=== PATIENT | male | born 1960 | race Caucasian/White ===

== ENCOUNTER 2023-07-26 20:10 | Inpatient (IN) | payer OTHER ==
[2023-07-26 21:08] LABS: #Basophils 0.03 10x3/uL (0.0-0.2); %Basophils 0.4 % (0.0-1.0); %Eosinophils 1.7 % (0.0-10.0); %Lymphocytes 30.2 % (21.0-51.0); %Monocytes 8.2 % (0.0-10.0); Hematocrit 43.7 % (42.0-52.0); Hemoglobin 16.1 g/dL (14.0-18.0); Mean Corpuscular HGB CONC 36.8 g/dL (32.0-36.0); Mean Corpuscular Hemoglobin 32.7 pg (27.0-31.0); Mean Corpuscular Volume 88.8 fL (78.0-98.0); Platelet Count 171 10x3/uL (130-400); RBC Distribution Width 13.4 % (11.5-14.5); Red Blood Cell (RBC) Count 4.92 mill/uL (4.70-6.10)
[2023-07-26 21:21] LABS: ALT (SGPT) 31 U/L (8-55); AST (SGOT) 24 U/L (5-34); Albumin 3.9 g/dL (3.4-4.8); Alkaline Phosphatase 90 U/L (40-110); Anion Gap 18 mmol/L (10-20); BUN (Urea Nitrogen) 14 mg/dL (8.4-25.7); Bilirubin, Total 0.5 mg/dL (0.2-1.2); Calc. Creatinine Clearance 0 mL/min (70-130); Calcium 9.3 mg/dL (7.8-10.44); Carbon Dioxide 21 mmol/L (23-31); Chloride 99 mmol/L (98-107); Estimated GFR 70; Globulin 3.9 g/dL (2.4-3.5); Glucose 157 mg/dL (80-115); Potassium 3.3 mmol/L (3.5-5.1); Protein, Total 7.8 g/dL (5.8-8.1); Sodium 135 mmol/L (136-145)
[2023-07-26 21:26] LABS: Troponin I 0.079 ng/mL (< 0.028)
[2023-07-26] MEDS ORDERED: Aspirin Chewable 81 MG TAB ONE (21:32)
[2023-07-26] MEDS ORDERED: Acetaminophen 500 MG TAB ONE (21:32)
[2023-07-26] MEDS ORDERED: Pantoprazole 40 MG VIAL ONE (21:33)
[2023-07-26] MEDS ORDERED: Senokot S 8.6-50 MG TAB PO PRN (22:11)
[2023-07-26] MEDS ORDERED: Acetaminophen 650 MG Suppository PR PRN (22:11)
[2023-07-26] MEDS ORDERED: Acetaminophen 325 MG TAB PO PRN (22:11)
[2023-07-26] MEDS ORDERED: Nitroglycerin 0.4 MG TAB (25 Tab Bottle) SL PRN (22:12)
[2023-07-26] MEDS ORDERED: Morphine 2 MG/ML VIAL SLOW IVP PRN (23:43)
[2023-07-27 00:06] LABS: Magnesium 1.9 mg/dL (1.6-2.6)
[2023-07-27 00:19] LABS: Critical Call Chem Troponin I NUR.MVB@0019; Troponin I 0.708 ng/mL (< 0.028)
[2023-07-27] MEDS ORDERED: Enoxaparin 80 MG (0.8 mL) SYRINGE SC SCH (00:30)
[2023-07-27 01:01] VITALS: BMI 36.1
[2023-07-27] MEDS ORDERED: Morphine 2 MG/ML VIAL ONE (01:22)
[2023-07-27] MEDS ORDERED: Nitroglycerin 2% Ointment 1 INCH/1 GM Packet ONE ×4 (01:23→09:30)
[2023-07-27] MEDS ORDERED: Potassium Chloride 20 MEQ TAB ONE ×2 (01:25→01:26)
[2023-07-27] MEDS: Enoxaparin 120 MG/0.8 ML SYRINGE SC SCH (01:30)
[2023-07-27] MEDS: Morphine 2 MG/ML VIAL SLOW IVP SCH (01:31)
[2023-07-27] MEDS: Nitroglycerin 2% Ointment 1 INCH/1 GM Packet TOP SCH (01:32)
[2023-07-27] MEDS: Lidocaine 2% Viscous 10 mL, Alum & Magn 30 mL SSW SCH (01:33)
[2023-07-27] MEDS ORDERED: Enoxaparin 30 MG (0.3 mL) SYRINGE ONE ×2 (01:38→09:17)
[2023-07-27] MEDS ORDERED: Enoxaparin 100 MG (1 mL) SYRINGE ONE ×2 (01:38→09:18)
[2023-07-27] MEDS: Enoxaparin 100 MG (1 mL) SYRINGE SC SCH ×2 (01:41→09:21)
[2023-07-27] MEDS: Communication Order-Pharmacy FS SCH (01:42)
[2023-07-27] MEDS: Enoxaparin 30 MG (0.3 mL) SYRINGE SC SCH ×2 (01:42→09:20)
[2023-07-27 03:45] LABS: #Basophils 0.04 10x3/uL (0.0-0.2); %Basophils 0.4 % (0.0-1.0); %Eosinophils 1.2 % (0.0-10.0); %Lymphocytes 20.1 % (21.0-51.0); %Monocytes 6.7 % (0.0-10.0); %Neutrophils 71.2 % (42.0-75.0); Hematocrit 42.1 % (42.0-52.0); Hemoglobin 15.3 g/dL (14.0-18.0); Mean Corpuscular HGB CONC 36.3 g/dL (32.0-36.0); Mean Corpuscular Hemoglobin 32.6 pg (27.0-31.0); Mean Corpuscular Volume 89.6 fL (78.0-98.0); Mean Platelet Volume 9.5 fL (7.4-10.4); Platelet Count 172 10x3/uL (130-400); RBC Distribution Width 13.4 % (11.5-14.5)
[2023-07-27 04:10] LABS: Anion Gap 14 mmol/L (10-20); BUN (Urea Nitrogen) 15 mg/dL (8.4-25.7); Calc. Creatinine Clearance 132 mL/min (70-130); Calcium 9.1 mg/dL (7.8-10.44); Carbon Dioxide 25 mmol/L (23-31); Chloride 101 mmol/L (98-107); Estimated GFR 82; Glucose 137 mg/dL (80-115); Potassium 3.5 mmol/L (3.5-5.1); Sodium 136 mmol/L (136-145)
[2023-07-27 04:27] LABS: Troponin I 17.858 ng/mL (< 0.028)
[2023-07-27] MEDS ORDERED: Enoxaparin 40 MG (0.4 mL) SYRINGE SC SCH (09:00)
[2023-07-27] MEDS ORDERED: Aspirin Chewable 81 MG TAB ONE (09:17)
[2023-07-27] MEDS ORDERED: Famotidine 20 MG TAB ONE (09:17)
[2023-07-27] MEDS: Famotidine 20 MG TAB PO SCH (09:20)
[2023-07-27] MEDS: Aspirin Chewable 81 MG TAB PO SCH (09:20)
[2023-07-27] MEDS ORDERED: Communication Order-Pharmacy FS SCH (12:00)
[2023-07-27 12:13] LABS: Troponin I 61.171 ng/mL (< 0.028)
[2023-07-27] MEDS ORDERED: Amlodipine 5 MG TAB ONE (12:17)
[2023-07-27] MEDS: Amlodipine 5 MG TAB PO SCH (12:18)
[2023-07-27] MEDS: Enoxaparin 40 MG (0.4 mL) SYRINGE SC SCH (22:29)
[2023-07-28] MEDS: Sodium Chloride 0.9% 1,000 ML IV SCH (06:16)
[2023-07-28] MEDS: Amlodipine 5 MG TAB PO SCH (06:23)
[2023-07-28] MEDS ORDERED: Heparin 10,000 UNITS/ 10 ML VIAL ONE (08:39)
[2023-07-28] MEDS ORDERED: Midazolam HCl 2 mg/2 ml Vial ONE (09:06)
[2023-07-28] MEDS ORDERED: fentaNYL 50 mcg/mL 1 mL Vial ONE ×2 (09:06→09:47)
[2023-07-28] MEDS ORDERED: Metoprolol Tartrate 5 MG (5 mL) VIAL ONE (09:25)
[2023-07-28] MEDS ORDERED: Iopamidol 370 76% 100 ML VIAL ONE (10:03)
[2023-07-28] MEDS ORDERED: Sodium Chloride 0.9% 200 ML IV PRN (10:11)
[2023-07-28] MEDS ORDERED: Nitroglycerin 0.4 MG TAB (25 Tab Bottle) SL PRN (10:11)
[2023-07-28] MEDS ORDERED: Acetaminophen/Codeine 30-300mg Tablet PO PRN (10:11)
[2023-07-28] MEDS: Carvedilol 3.125 MG TAB PO SCH (20:47)
[2023-07-29] MEDS: Acetaminophen/Codeine 30-300mg Tablet PO PRN (05:28)
[2023-07-29 05:29] LABS: Hemoglobin A1c 5.6 % (4.0-6.0)
[2023-07-29 05:40] LABS: Anion Gap 14 mmol/L (10-20); BUN (Urea Nitrogen) 10 mg/dL (8.4-25.7); Calc. Creatinine Clearance 155 mL/min (70-130); Calcium 8.4 mg/dL (7.8-10.44); Carbon Dioxide 21 mmol/L (23-31); Cardiac Risk 6.7 (Less than 4.5); Chloride 108 mmol/L (98-107); Cholesterol 194 mg/dl (< 200 Desired); Estimated GFR 96; Glucose 130 mg/dL (80-115); HDL Cholesterol 29 mg/dL (>60 Neg Risk); LDL Cholesterol, Calculated 98 mg/dL; Potassium 3.6 mmol/L (3.5-5.1); Sodium 139 mmol/L (136-145); Triglycerides 334 mg/dL (Less than 150)
[2023-07-29 06:19] LABS: #Basophils 0.04 10x3/uL (0.0-0.2); %Basophils 0.6 % (0.0-1.0); %Eosinophils 1.9 % (0.0-10.0); %Lymphocytes 19.8 % (21.0-51.0); %Neutrophils 66.4 % (42.0-75.0); Hematocrit 36.2 % (42.0-52.0); Hemoglobin 12.9 g/dL (14.0-18.0); Mean Corpuscular HGB CONC 35.6 g/dL (32.0-36.0); Mean Corpuscular Hemoglobin 32.1 pg (27.0-31.0); Mean Platelet Volume 9.7 fL (7.4-10.4); Platelet Count 138 10x3/uL (130-400); RBC Distribution Width 13.9 % (11.5-14.5); Red Blood Cell (RBC) Count 4.02 mill/uL (4.70-6.10)
[2023-07-30] MEDS: diphenhydrAMINE 25 MG CAP PO SCH (00:03)
[2023-07-30] MEDS ORDERED: Non-Formulary Item 1 EACH (Losartan [Cozaar] 50 MG Tab) PO SCH (09:00)
[2023-07-30] MEDS: Losartan 25 MG TAB PO SCH (09:27)
[2023-07-30] MEDS: Ezetimibe 10 MG TAB PO SCH (09:28)
[2023-07-31] MEDS ORDERED: Bupivacaine PF 0.5% 30 ML VIAL ONE (06:33)
[2023-07-31] MEDS ORDERED: EPINEPHrine 1 MG/ML VIAL ONE (06:33)
[2023-07-31] MEDS ORDERED: Dexamethasone 4 mg/ml Vial ONE (06:34)
[2023-07-31] MEDS ORDERED: Fentanyl 250 MCG/5 ML VIAL ONE (06:45)
[2023-07-31] MEDS ORDERED: PROPOFOL 20 ML ONE (06:45)
[2023-07-31] MEDS ORDERED: ePHEDrine Sulfate 50 MG/10 ML VIAL ONE (06:45)
[2023-07-31] MEDS ORDERED: Aminocaproic Acid 5 GM/20 ML VIAL ONE ×2 (06:46→07:47)
[2023-07-31] MEDS ORDERED: Midazolam HCl 2 mg/2 ml Vial ONE (06:46)
[2023-07-31] MEDS ORDERED: Rocuronium Bromide 10 MG/ML (10ML VIAL) ONE ×3 (06:46→12:02)
[2023-07-31] MEDS ORDERED: CEFAZOLIN 1 GM VIAL ONE ×2 (06:46→06:47)
[2023-07-31] MEDS ORDERED: Lidocaine 2% PF 100 mg/5 ml Syringe ONE ×2 (06:46→07:47)
[2023-07-31] MEDS ORDERED: Lidocaine 2% PF 5 ML VIAL ONE (06:46)
[2023-07-31] MEDS ORDERED: Norepinephrine 4 MG/4 ML VIAL ONE (06:46)
[2023-07-31] MEDS ORDERED: PHENYLEPHRINE-NS 100 MCG/ML 10 ML SYRINGE ONE (06:46)
[2023-07-31] MEDS ORDERED: Sodium Chloride 0.9% 250 ML 250 ML ONE (06:47)
[2023-07-31] MEDS ORDERED: Albumin 5% 500 ML ONE (07:12)
[2023-07-31] MEDS ORDERED: Heparin 10,000 UNITS/1 ML VIAL 30,000 UNITS in Sodium Chloride 0.9% 1,000 ML FS SCH (07:15)
[2023-07-31] MEDS ORDERED: Vancomycin 1 GM VIAL ONE (07:47)
[2023-07-31] MEDS ORDERED: Papaverine 60 MG/2 ML VIAL ONE (07:47)
[2023-07-31] MEDS ORDERED: Heparin 5,000 UNITS/ML VIAL ONE (07:47)
[2023-07-31] MEDS ORDERED: Thrombin 5000 UNITS/5 ML VIAL ONE (07:47)
[2023-07-31] MEDS ORDERED: Mannitol 12.5 GM/50 ML ONE (07:47)
[2023-07-31] MEDS ORDERED: Magnesium 5 GM/10 ML VIAL ONE (07:47)
[2023-07-31] MEDS ORDERED: Protamine Sulfate 250 MG/25 ML VIAL ONE (07:47)
[2023-07-31] MEDS ORDERED: Sodium Bicarb 50 mEq/50 ML VIAL ONE (07:47)
[2023-07-31] MEDS ORDERED: Cardioplegic Soln 1,000 ML BAG ONE (07:47)
[2023-07-31] MEDS ORDERED: Heparin 30,000 units/30 ml VIAL ONE (07:47)
[2023-07-31] MEDS ORDERED: Calcium Chloride 1 GM/10 ML Abboject SYRINGE ONE (07:47)
[2023-07-31] MEDS ORDERED: EPINEPHrine 1 MG/ML AMP ONE (07:47)
[2023-07-31] MEDS ORDERED: Potassium Chloride 60 mEq (30 mL) VIAL ONE (07:47)
[2023-07-31] MEDS ORDERED: Esmolol 100 MG/10 ML VIAL ONE (08:09)
[2023-07-31 11:40] LABS: ALV-art Gradient 319.725 mmHg (0-20); Actual Bicarbonate (HCO3a) 22.7 mEq/L (22-28); CO2 Tension 47.9 mmHg (35.0-45.0); Calcium, Ionized (arterial) 1.08 mmol/L (1.12-1.30); Carboxyhemoglobin (COHb) 0.5 gm% (0.0-3.0); Hematocrit-ABG 35 % (42.0-52.0); Hemoglobin (Hb) 11.8 g/dL (14.0-18.0); O2 Tension (PaO2), arterial 333.4 mmHg (> 80.0); Puncture Site ALINE; pH, Arterial 7.293 (7.35-7.45)
[2023-07-31] MEDS ORDERED: Insulin Regular 300 UNITS/3 ML VIAL ONE (12:02)
[2023-07-31] MEDS ORDERED: Heparin 10,000 UNITS/ 10 ML VIAL ONE (12:13)
[2023-07-31] MEDS ORDERED: Bisacodyl 10 MG SUPP PR PRN (14:36)
[2023-07-31] MEDS ORDERED: Bisacodyl 5 MG TAB PO PRN (14:36)
[2023-07-31] MEDS ORDERED: Mag-Al 1200 mg/1200 mg/30 ML UDCUP PO PRN (14:36)
[2023-07-31] MEDS ORDERED: Promethazine HCl 25 MG/ML VIAL IM PRN (14:36)
[2023-07-31] MEDS ORDERED: Albumin 5% 12.5 GM (250 mL) BOT IVPB PRN (14:36)
[2023-07-31] MEDS ORDERED: hydrALAZINE 20 MG/ML VIAL SLOW IVP PRN (14:36)
[2023-07-31] MEDS ORDERED: Ondansetron PF 4 MG/2 ML Vial IVP PRN (14:36)
[2023-07-31] MEDS ORDERED: niCARdipine 25 MG in Sodium Chloride 0.9% 250 ML 250 ML IVPB PRN (14:36)
[2023-07-31] MEDS ORDERED: Morphine 2 MG/ML VIAL SLOW IVP PRN (14:36)
[2023-07-31] MEDS ORDERED: Post-Op Insulin Drip Protocol IVPB SCH (14:36)
[2023-07-31] MEDS ORDERED: Dextrose 5% in Water 1,000 ML IV PRN (15:00)
[2023-07-31] MEDS ORDERED: Dextrose 50% Abboject 50 ML SYRINGE SLOW IVP PRN (15:00)
[2023-07-31] MEDS: NOREPINEPHRINE 8 MG/250 ML-D5W 250 ML IVPB PRN (15:00)
[2023-07-31] MEDS ORDERED: Glucagon 1 MG/ML KIT SC PRN (15:00)
[2023-07-31 15:14] LABS: ALV-art Gradient 302.975 mmHg (0-20); Actual Bicarbonate (HCO3a) 20.5 mEq/L (22-28); Base Excess (BEa) -4.7 mEq/L (-2.0 to +3.0); CO2 Tension 38.5 mmHg (35.0-45.0); Hematocrit-ABG 39 % (42.0-52.0); Hemoglobin (Hb) 13.2 g/dL (14.0-18.0); O2 Tension (PaO2), arterial 76.7 mmHg (> 80.0); Potassium - ABG Lab 4.49 mmol/L (3.70-5.30); Puncture Site Arterial Line; pH, Arterial 7.344 (7.35-7.45)
[2023-07-31] MEDS: Magnesium 2 GM/50 ML(in water) 2 GM in Premix 1 BAG IVPB SCH (15:30)
[2023-07-31] MEDS: D5 1/2 NS w/20 mEq KCL 1,000 ML IV SCH (15:30)
[2023-07-31] MEDS: CEFAZOLIN 2 GM in Sodium Chloride 0.9% 100 ML IVPB SCH (15:30)
[2023-07-31 15:33] LABS: #Basophils 0.03 10x3/uL (0.0-0.2); #Eosinphils Less than 0.03 10x3/uL (0.0-0.7); %Basophils 0.2 % (0.0-1.0); %Eosinophils 0.1 % (0.0-10.0); %Lymphocytes 7.8 % (21.0-51.0); %Monocytes 9.9 % (0.0-10.0); %Neutrophils 80.6 % (42.0-75.0); Hematocrit 37.4 % (42.0-52.0); Hemoglobin 13.4 g/dL (14.0-18.0); Mean Corpuscular HGB CONC 35.8 g/dL (32.0-36.0); Mean Corpuscular Volume 92.1 fL (78.0-98.0); Mean Platelet Volume 9.4 fL (7.4-10.4); Platelet Count 178 10x3/uL (130-400); RBC Distribution Width 13.4 % (11.5-14.5); Red Blood Cell (RBC) Count 4.06 mill/uL (4.70-6.10)
[2023-07-31] MEDS: Albumin 5% 12.5 GM (250 mL) BOT IVPB PRN (15:35)
[2023-07-31] MEDS: Insulin Reg, Human 100 UNITS in Sodium Chloride 0.9% 100 ML IVPB SCH (15:52)
[2023-07-31 16:01] LABS: INR-International Normal Ratio 1.2
[2023-07-31 16:02] LABS: PTT 30.2 sec (22.9-36.1)
[2023-07-31 16:43] LABS: Anion Gap 13 mmol/L (10-20); BUN (Urea Nitrogen) 11 mg/dL (8.4-25.7); Calc. Creatinine Clearance 150 mL/min (70-130); Calcium 7.7 mg/dL (7.8-10.44); Carbon Dioxide 19 mmol/L (23-31); Chloride 111 mmol/L (98-107); Estimated GFR 95; Glucose 174 mg/dL (80-115); Potassium 4.5 mmol/L (3.5-5.1); Sodium 138 mmol/L (136-145)
[2023-07-31 17:31] LABS: Actual Bicarbonate (HCO3a) 20.6 mEq/L (22-28); Base Excess (BEa) -3.1 mEq/L (-2.0 to +3.0); CO2 Tension 32.8 mmHg (35.0-45.0); Calcium, Ionized (arterial) 1.07 mmol/L (1.12-1.30); Carboxyhemoglobin (COHb) 1.1 gm% (0.0-3.0); Hematocrit-ABG 37 % (42.0-52.0); Hemoglobin (Hb) 12.7 g/dL (14.0-18.0); O2 Tension (PaO2), arterial 69.3 mmHg (> 80.0); Potassium - ABG Lab 4.23 mmol/L (3.70-5.30); pH, Arterial 7.416 (7.35-7.45)
[2023-07-31 17:33] LABS: Puncture Site Arterial Line
[2023-07-31] MEDS: fentaNYL 50 mcg/mL 1 mL Vial SLOW IVP PRN (18:10)
[2023-07-31] MEDS: Ipratropium/Albuterol 3 ML NEB NEB SCH (18:29)
[2023-07-31] MEDS: Atorvastatin Calcium 20 MG TAB PO SCH (20:33)
[2023-07-31] MEDS: Famotidine/PF 20 mg/2ml Vial SLOW IVP SCH (20:34)
[2023-07-31 20:37] LABS: Hematocrit 33.1 % (42.0-52.0); Hemoglobin 11.9 g/dL (14.0-18.0)
[2023-07-31 20:50] LABS: Potassium 4.3 mmol/L (3.5-5.1)
[2023-08-01 04:59] LABS: #Basophils 0.03 10x3/uL (0.0-0.2); #Eosinphils Less than 0.03 10x3/uL (0.0-0.7); %Basophils 0.3 % (0.0-1.0); %Lymphocytes 10.2 % (21.0-51.0); %Monocytes 11.4 % (0.0-10.0); %Neutrophils 77.8 % (42.0-75.0); Hematocrit 31.4 % (42.0-52.0); Hemoglobin 11.1 g/dL (14.0-18.0); Mean Corpuscular HGB CONC 35.4 g/dL (32.0-36.0); Mean Corpuscular Hemoglobin 32.1 pg (27.0-31.0); Mean Corpuscular Volume 90.8 fL (78.0-98.0); Platelet Count 147 10x3/uL (130-400); RBC Distribution Width 13.8 % (11.5-14.5); Red Blood Cell (RBC) Count 3.46 mill/uL (4.70-6.10)
[2023-08-01 05:51] LABS: Anion Gap 10 mmol/L (10-20); BUN (Urea Nitrogen) 11 mg/dL (8.4-25.7); Calc. Creatinine Clearance 150 mL/min (70-130); Calcium 8.1 mg/dL (7.8-10.44); Carbon Dioxide 21 mmol/L (23-31); Chloride 110 mmol/L (98-107); Estimated GFR 95; Glucose 123 mg/dL (80-115); Sodium 137 mmol/L (136-145)
[2023-08-01] MEDS: Potassium Chloride 20 MEQ (100 mL) BAG IVPB PRN (06:32)
[2023-08-01] MEDS: Magnesium 2 GM/50 ML(in water) 2 GM in Premix 1 BAG IVPB SCH (08:27)
[2023-08-01] MEDS: Insulin Glargine 30 UNITS/0.3 ML VIAL SC SCH (08:50)
[2023-08-01] MEDS: Insulin Regular, Human 100 UNIT/ML 10 ML VIAL SC PRN (11:59)
[2023-08-01] MEDS ORDERED: diphenhydrAMINE 25 MG CAP PO PRN (13:01)
[2023-08-01] MEDS ORDERED: Mineral Oil ENEMA PR PRN (13:01)
[2023-08-01] MEDS ORDERED: Artificial Tear Ophth Sol 15 ML BOT EA EYE PRN (13:01)
[2023-08-01] MEDS ORDERED: Ipratropium/Albuterol 3 ML NEB NEB PRN (13:01)
[2023-08-01] MEDS: traMADol HCl 50 MG TAB PO PRN (20:17)
[2023-08-02 04:23] LABS: #Basophils 0.03 10x3/uL (0.0-0.2); %Basophils 0.3 % (0.0-1.0); %Eosinophils 0.3 % (0.0-10.0); %Lymphocytes 10.3 % (21.0-51.0); %Monocytes 12.8 % (0.0-10.0); %Neutrophils 75.7 % (42.0-75.0); Hematocrit 28.9 % (42.0-52.0); Hemoglobin 9.9 g/dL (14.0-18.0); Mean Corpuscular HGB CONC 34.3 g/dL (32.0-36.0); Mean Corpuscular Hemoglobin 33.1 pg (27.0-31.0); Mean Corpuscular Volume 96.7 fL (78.0-98.0); Mean Platelet Volume 9.5 fL (7.4-10.4); Platelet Count 131 10x3/uL (130-400); RBC Distribution Width 14.1 % (11.5-14.5); Red Blood Cell (RBC) Count 2.99 mill/uL (4.70-6.10)
[2023-08-02 04:57] LABS: Anion Gap 15 mmol/L (10-20); BUN (Urea Nitrogen) 23 mg/dL (8.4-25.7); Calc. Creatinine Clearance 73 mL/min (70-130); Calcium 8.2 mg/dL (7.8-10.44); Carbon Dioxide 20 mmol/L (23-31); Chloride 106 mmol/L (98-107); Estimated GFR 40; Glucose 139 mg/dL (80-115); Potassium 4.4 mmol/L (3.5-5.1); Sodium 137 mmol/L (136-145)
[2023-08-02] MEDS: fentaNYL 50 mcg/mL 1 mL Vial SLOW IVP PRN (07:28)
[2023-08-02] MEDS: Potassium Chloride 20 MEQ TAB PO SCH (08:13)
[2023-08-02 11:57] VITALS: BMI 37.0
[2023-08-02 15:13] LABS: Anion Gap 19 mmol/L (10-20); BUN (Urea Nitrogen) 26 mg/dL (8.4-25.7); Calc. Creatinine Clearance 78 mL/min (70-130); Calcium 8.8 mg/dL (7.8-10.44); Carbon Dioxide 18 mmol/L (23-31); Chloride 105 mmol/L (98-107); Estimated GFR 42; Glucose 133 mg/dL (80-115); Potassium 4.7 mmol/L (3.5-5.1); Sodium 137 mmol/L (136-145)
[2023-08-02] MEDS: traMADol HCl 50 MG TAB PO PRN (15:46)
[2023-08-02] MEDS ORDERED: diphenhydrAMINE 50 MG CAP PO PRN (16:26)
[2023-08-03] MEDS: Guaifenesin DM 100-10/5 ML UDCUP PO PRN (03:47)
[2023-08-03 04:53] LABS: #Basophils 0.03 10x3/uL (0.0-0.2); %Basophils 0.3 % (0.0-1.0); %Eosinophils 0.9 % (0.0-10.0); %Monocytes 10.4 % (0.0-10.0); %Neutrophils 75.7 % (42.0-75.0); Hematocrit 29.6 % (42.0-52.0); Hemoglobin 9.8 g/dL (14.0-18.0); Mean Corpuscular HGB CONC 33.1 g/dL (32.0-36.0); Mean Corpuscular Hemoglobin 31.8 pg (27.0-31.0); Mean Corpuscular Volume 96.1 fL (78.0-98.0); Mean Platelet Volume 9.6 fL (7.4-10.4); Platelet Count 163 10x3/uL (130-400); RBC Distribution Width 14.1 % (11.5-14.5); Red Blood Cell (RBC) Count 3.08 mill/uL (4.70-6.10)
[2023-08-03 05:56] LABS: Anion Gap 10 mmol/L (10-20); BUN (Urea Nitrogen) 30 mg/dL (8.4-25.7); Calc. Creatinine Clearance 108 mL/min (70-130); Calcium 8.6 mg/dL (7.8-10.44); Carbon Dioxide 22 mmol/L (23-31); Chloride 105 mmol/L (98-107); Estimated GFR 63; Glucose 121 mg/dL (80-115); Potassium 4.5 mmol/L (3.5-5.1); Sodium 132 mmol/L (136-145)
[2023-08-03] MEDS ORDERED: Acetaminophen 325 MG TAB PO PRN (07:59)
[2023-08-03] MEDS: Furosemide 20 MG (2 mL) VIAL SLOW IVP SCH (10:08)
[2023-08-03 10:25] LABS: Actual Bicarbonate (HCO3a) 22.1 mEq/L (22-28); Analyzer IN Cardio OR; CO2 Tension 39.7 mmHg (35.0-45.0); Calcium, Ionized (arterial) 1.12 mmol/L (1.12-1.30); Carboxyhemoglobin (COHb) 1.3 gm% (0.0-3.0); Hematocrit-ABG 37 % (42.0-52.0); Hemoglobin (Hb) 12.6 g/dL (14.0-18.0); O2 Tension (PaO2), arterial 399.6 mmHg (> 80.0); Potassium - ABG Lab 4.13 mmol/L (3.70-5.30); pH, Arterial 7.364 (7.35-7.45)
[2023-08-03 10:25] LABS: Actual Bicarbonate (HCO3a) 23.2 mEq/L (22-28); Analyzer IN Cardio OR; Base Excess (BEa) -0.9 mEq/L (-2.0 to +3.0); CO2 Tension 36.6 mmHg (35.0-45.0); Calcium, Ionized (arterial) 1.16 mmol/L (1.12-1.30); Carboxyhemoglobin (COHb) 1.3 gm% (0.0-3.0); Hematocrit-ABG 41 % (42.0-52.0); Hemoglobin (Hb) 13.8 g/dL (14.0-18.0); O2 Tension (PaO2), arterial 263.2 mmHg (> 80.0); pH, Arterial 7.419 (7.35-7.45)
[2023-08-03 10:26] LABS: Puncture Site Arterial Line
[2023-08-03 10:26] LABS: Actual Bicarbonate (HCO3a) 23.7 mEq/L (22-28); Base Excess (BEa) -2.4 mEq/L (-2.0 to +3.0); CO2 Tension 46.2 mmHg (35.0-45.0); Calcium, Ionized (arterial) 1.08 mmol/L (1.12-1.30); Carboxyhemoglobin (COHb) 0.5 gm% (0.0-3.0); Hematocrit-ABG 35 % (42.0-52.0); Hemoglobin (Hb) 11.9 g/dL (14.0-18.0); Potassium - ABG Lab 4.94 mmol/L (3.70-5.30); pH, Arterial 7.328 (7.35-7.45)
[2023-08-03 10:26] LABS: Puncture Site Arterial Line
[2023-08-03 10:27] LABS: Actual Bicarbonate (HCO3a) 23.9 mEq/L (22-28); Base Excess (BEa) -2.9 mEq/L (-2.0 to +3.0); CO2 Tension 50.3 mmHg (35.0-45.0); Calcium, Ionized (arterial) 1.25 mmol/L (1.12-1.30); Carboxyhemoglobin (COHb) 0.7 gm% (0.0-3.0); Hematocrit-ABG 36 % (42.0-52.0); Hemoglobin (Hb) 12.1 g/dL (14.0-18.0); O2 Tension (PaO2), arterial 313.3 mmHg (> 80.0); Potassium - ABG Lab 4.89 mmol/L (3.70-5.30); pH, Arterial 7.295 (7.35-7.45)
[2023-08-03 10:27] LABS: Actual Bicarbonate (HCO3a) 23.2 mEq/L (22-28); Base Excess (BEa) -2.5 mEq/L (-2.0 to +3.0); CO2 Tension 43.7 mmHg (35.0-45.0); Calcium, Ionized (arterial) 1.12 mmol/L (1.12-1.30); Carboxyhemoglobin (COHb) 0.4 gm% (0.0-3.0); Hematocrit-ABG 32 % (42.0-52.0); Hemoglobin (Hb) 10.9 g/dL (14.0-18.0); O2 Tension (PaO2), arterial 148.1 mmHg (> 80.0); pH, Arterial 7.343 (7.35-7.45)
[2023-08-03 10:29] LABS: Puncture Site Arterial Line
[2023-08-03 10:30] LABS: Puncture Site Arterial Line
[2023-08-03 10:30] LABS: Puncture Site Arterial Line
[2023-08-04] MEDS: Furosemide 40 MG (4 mL) VIAL SLOW IVP SCH (05:54)
[2023-08-04 06:10] LABS: #Basophils 0.03 10x3/uL (0.0-0.2); %Basophils 0.4 % (0.0-1.0); %Eosinophils 2.3 % (0.0-10.0); %Lymphocytes 17.8 % (21.0-51.0); %Monocytes 11.4 % (0.0-10.0); %Neutrophils 67.6 % (42.0-75.0); Hematocrit 28.6 % (42.0-52.0); Hemoglobin 9.7 g/dL (14.0-18.0); Mean Corpuscular HGB CONC 33.9 g/dL (32.0-36.0); Mean Corpuscular Hemoglobin 32.3 pg (27.0-31.0); Mean Corpuscular Volume 95.3 fL (78.0-98.0); Mean Platelet Volume 9.3 fL (7.4-10.4); Platelet Count 204 10x3/uL (130-400)
[2023-08-04 06:24] LABS: Anion Gap 13 mmol/L (10-20); BUN (Urea Nitrogen) 28 mg/dL (8.4-25.7); Calc. Creatinine Clearance 110 mL/min (70-130); Calcium 8.9 mg/dL (7.8-10.44); Carbon Dioxide 25 mmol/L (23-31); Chloride 103 mmol/L (98-107); Estimated GFR 70; Glucose 110 mg/dL (80-115); Potassium 3.7 mmol/L (3.5-5.1); Sodium 137 mmol/L (136-145)
[2023-08-04] MEDS: Ipratropium/Albuterol 3 ML NEB ONE (11:20)
[2023-08-04 12:11] VITALS: TEMP 98.1
[2023-08-04 12:19] VITALS: BP 138/91
== END 2023-08-04 12:57 | disposition home or self-care (01) | DRG 234 ==
LOC: ERS 20:10 → ERHOLD 22:22 → 2NO 07-27 13:43 → OBSVTOIN 07-27 15:29 → CCU 07-31 06:51 → 2NO 08-02 14:01
PROVIDERS: ADMIT Student in an Organized Health Care Education/Training Program; ATTEND Internal Medicine
PROC: 4A023N7 Measurement of Cardiac Sampling and Pressure, Left Heart, Percutaneous Approach (ICD-10-PCS; 2023-07-28)
PROC: B2111ZZ Fluoroscopy of Multiple Coronary Arteries using Low Osmolar Contrast (ICD-10-PCS; 2023-07-28)
PROC: 4A133R1 Monitoring of Arterial Saturation, Peripheral, Percutaneous Approach (ICD-10-PCS; 2023-07-31)
PROC: 3E033XZ Introduction of Vasopressor into Peripheral Vein, Percutaneous Approach (ICD-10-PCS; 2023-07-31)
PROC: 02100Z9 Bypass Coronary Artery, One Artery from Left Internal Mammary, Open Approach (ICD-10-PCS; principal; 2023-08-01)
PROC: 021209W Bypass Coronary Artery, Three Arteries from Aorta with Autologous Venous Tissue, Open Approach (ICD-10-PCS; 2023-08-01)
PROC: 06BQ4ZZ Excision of Left Saphenous Vein, Percutaneous Endoscopic Approach (ICD-10-PCS; 2023-08-01)
PROC: 5A1221Z Performance of Cardiac Output, Continuous (ICD-10-PCS; 2023-08-01)
PROC: 02L70CK Occlusion of Left Atrial Appendage with Extraluminal Device, Open Approach (ICD-10-PCS; 2023-08-01)
DX: I21.4 Non-ST elevation (NSTEMI) myocardial infarction (principal); N17.9 Acute kidney failure, unspecified; I25.110 Atherosclerotic heart disease of native coronary artery with unstable angina pectoris; D64.9 Anemia, unspecified; R73.9 Hyperglycemia, unspecified; I10 Essential (primary) hypertension; E87.6 Hypokalemia; E66.9 Obesity, unspecified; E78.1 Pure hyperglyceridemia; Z68.34 Body mass index [BMI] 34.0-34.9, adult; Z79.899 Other long term (current) drug therapy
CPT/HCPCS: 36415; 36416; 71045; 71250; 80048; 80053; 80061; 82805; 83036; 83735; 83880; 84443; 84484; 85025; 85610; 85730; 86850; 86900; 86901; 93005; 93010; 93306; 93458; 93459; 93798; 94002; 94640; 96374; 97139; 99152; 99153; A4311; A4648; C1751; C1769; C1887; C1889; C1894; C9113; J0171; J0665; J0690; J1100; J1642; J1644; J1650; J1815; J1940; J2001; J2150; J2250; J2260; J2272; J2440; J2704; J2720; J3010; J3370; J3475; J3480; J3490; J7050; J7620; P9045; Q9967; S0017; S0028

== ENCOUNTER 2023-10-12 15:31 | Outpatient (CLI) | payer OTHER | END 2023-10-12 15:32 | disposition home or self-care (01) | LOC: BICRAD 15:31 | PROVIDERS: ATTEND Internal Medicine Cardiovascular Disease | DX: R05.3 Chronic cough (principal) | CPT/HCPCS: 71046 ==

== ENCOUNTER 2024-12-27 07:08 | Emergency (ER) | payer OTHER, SELFPAY ==
[2024-12-27] MEDS ORDERED: Ondansetron PF 4 MG/2 ML Vial ONE (07:46)
[2024-12-27 08:04] LABS: #Basophils 0.05 10x3/uL (0.0-0.2); #Eosinophils 0.08 10x3/uL (0.0-0.7); #Monocytes 1.16 10x3/uL (0.11-0.59); #Neutrophils 11.52 10x3/uL (1.40-6.50); %Basophils 0.4 % (0.0-1.0); %Eosinophils 0.6 % (0.0-10.0); %Lymphocytes 9.2 % (21.0-51.0); %Monocytes 8.2 % (0.0-10.0); %Neutrophils 81.0 % (42.0-75.0); Hematocrit 29.4 % (42.0-52.0); Hemoglobin 9.5 g/dL (14.0-18.0); Mean Corpuscular Hemoglobin 25.5 pg (27.0-31.0); Mean Corpuscular Volume 78.8 fL (78.0-98.0); Platelet Count 278 10x3/uL (130-400); Red Blood Cell (RBC) Count 3.73 mill/uL (4.70-6.10); White Blood Cell (WBC) Count 14.20 10x3/uL (4.8-10.8)
[2024-12-27 08:17] LABS: INR-International Normal Ratio 1.3; PTT 40.0 sec (22.9-36.1); Prothrombin Time 15.8 sec (12.0-14.7)
[2024-12-27 08:20] LABS: ALT (SGPT) 20 U/L (Less than 45); AST (SGOT) 25 U/L (11-34); Albumin 2.2 g/dL (3.1-4.5); Alkaline Phosphatase 99 U/L (40-110); Anion Gap 14 mmol/L (10-20); BUN (Urea Nitrogen) 10 mg/dL (8.4-25.7); Bilirubin, Total 0.7 mg/dL (0.3-1.2); Calc. Creatinine Clearance 0 mL/min (70-130); Calcium 8.4 mg/dL (7.8-10.44); Carbon Dioxide 19 mmol/L (23-31); Chloride 103 mmol/L (98-107); Globulin 4.0 g/dL (2.4-3.5); Glucose 133 mg/dL (80-115); Magnesium 1.6 mg/dL (1.6-2.6); Potassium 3.3 mmol/L (3.5-5.1); Sodium 133 mmol/L (136-145)
[2024-12-27 08:50] LABS: Bacteria/HPF 4+ HPF (None Seen); CAUTI Indications for Culture Acute Hematuria; Glucose, Urine (Dipstick) Normal (Negative); Leukocyte 500 Leu/uL (Negative); Protein, Urine (Dipstick) 300 mg/dL (Neg-Trace); RBC/HPF 21-50 HPF (0-3); Specific Gravity, Urine 1.017 (1.002-1.036); WBC/HPF Greater than 50 HPF (0-3)
[2024-12-27 09:00] LABS: Urine Culture Reflex Yes Yes
[2024-12-27] MEDS ORDERED: LevoFLOXacin 750 mg/D5W 150 ml Premix Bag ONE (09:07)
[2024-12-27] MEDS ORDERED: cefTRIAXone (ROCEPHIN) 2 GM VIAL ONE (09:07)
[2024-12-27] MEDS ORDERED: Iopamidol-370 76% 500 ML MDV (1 ML CHARGE) ONE (11:05)
[2024-12-27 23:25] LABS: Chlam.trachomatis by PCR,Urine Not Detected (NotDetected); GC N.gonorrhoeae PCR,UrineVOID Not Detected (NotDetected)
[2024-12-28 01:46] LABS: Campy jejuni + coli by PCR Negative (Negative); STEC Shiga Toxin 1+2 Negative (Negative); Salmonella spp. by PCR Negative (Negative); Shigella spp + EIEC by PCR Negative (Negative)
== END 2024-12-27 13:49 | disposition short-term general hospital (02) ==
LOC: ERS 07:08
DX: K63.9 Disease of intestine, unspecified (principal); N32.89 Other specified disorders of bladder; E87.6 Hypokalemia; N39.0 Urinary tract infection, site not specified; I10 Essential (primary) hypertension
CPT/HCPCS: 74177; 80053; 81001; 83605; 83735; 84484; 85025; 85610; 85730; 87040; 87077; 87086; 87149; 87186; 87324; 87449; 87491; 87505; 87591; 93005; 96365; 96366; 96367; 96375; J0696; J1956; J2270; J2405